=== PATIENT | female | born 2000 | race African-American/Black ===

== ENCOUNTER → 2025-07-27 | Emergency (ER) | payer OTHER ==
[~2025-07-27] VITALS: Ht 157.5 cm; Wt 52.3 kg
[2025-07-27 12:07] VITALS: BP 115/74; PULSE 98; RESP 18; TEMP 98.6; O2SAT 99
== END | disposition still patient (30) ==
LOC: EMS 11:48
DX: H57.12 Ocular pain, left eye (principal); Z53.21 Procedure and treatment not carried out due to patient leaving prior to being seen by health care provider